=== PATIENT | female | born 1945 | race Caucasian/White ===

== ENCOUNTER 2023-06-11 11:30 | Emergency (ER) | payer OTHER ==
[~2023-06-11] VITALS: Ht 167.6 cm; Wt 84.4 kg
[2023-06-11] MEDS ORDERED: AMLOPIDINE (11:39)
[2023-06-11] MEDS ORDERED: TIZANIDINE HCL2 M1 PO (11:40)
[2023-06-11] MEDS ORDERED: DICLOFENAC SODI75 MG PO (16:43)
[2023-06-11] MEDS ORDERED: NORFLEX100MG PO (16:43)
[2023-06-11] MEDS ORDERED: NEURONTIN300 MG PO (16:43)
== END 2023-06-11 17:21 | disposition home or self-care (01) ==
LOC: ER 11:31
DX: M54.50 Low back pain, unspecified (principal); I10 Essential (primary) hypertension
CPT/HCPCS: 72100; 96372; 99284; J1885; J2360